=== PATIENT | male | born 1975 | race Hispanic/Latino ===

== ENCOUNTER 2021-06-26 15:00 | Inpatient (IN) | payer SELFPAY ==
[~2021-06-26] VITALS: Ht 165.1 cm; Wt 90.6 kg
[2021-06-26] VITALS (28 sets, daily range): BP systolic 124–154; BP diastolic 71–85
[2021-06-26] MEDS ORDERED: IOHEXOL-350 50ML VIAL IV ONE (15:11)
[2021-06-26] MEDS ORDERED: FENTANYL CITRATE PF 50 MCG/1 ML 2ML VIAL ONE (15:11)
[2021-06-26] MEDS ORDERED: IOHEXOL 350 MG/ML 100ML INFUS..BTL IV ONE (15:11)
[2021-06-26] MEDS ORDERED: MIDAZOLAM HCL 1 MG/ML 2ML VIAL ONE (15:11)
[2021-06-26] MEDS ORDERED: HEPARIN 10,000 UNIT/10ML (1,000 UNIT/ML) VIAL ONE (15:11)
[2021-06-26] MEDS ORDERED: LIDOCAINE HCL 400MG/20ML VIAL ONE (15:12)
[2021-06-26] MEDS ORDERED: NITROGLYCERIN 50MG VIAL ONE (15:18)
[2021-06-26] MEDS ORDERED: EPTIFIBATIDE 2 MG/ML 10 ML VIAL IVP ONE ×2 (15:58→17:53)
[2021-06-26] MEDS ORDERED: EPTIFIBATIDE 75MG/100ML BOTTLE 100 ML IV ONE (15:59)
[2021-06-26] MEDS ORDERED: CLOPIDOGREL 300MG TAB ONE (16:11)
[2021-06-26] MEDS ORDERED: EPTIFIBATIDE 75MG/100ML BOTTLE 100 ML IV SCH (17:00)
[2021-06-26] MEDS ORDERED: ONDANSETRON 4MG INJ IVP SCH (17:00)
[2021-06-26] MEDS ORDERED: ACETAMINOPHEN WITH CODEINE 1 TAB TAB PO PRN ×2 (17:00)
[2021-06-26] MEDS ORDERED: ONDANSETRON 4MG INJ IVP PRN (17:00)
[2021-06-26] MEDS ORDERED: HEPARIN 25,000 UNITS/250ML D5W 250 ML IV SCH (17:00)
[2021-06-26] MEDS ORDERED: MORPHINE 5 MG/ML VIAL (5MG OR GREATER DOSE) IVP SCH ×2 (17:00)
[2021-06-26] MEDS ORDERED: TEMAZEPAM 30 MG CAP PO PRN (17:00)
[2021-06-26] MEDS ORDERED: NITROGLYCERIN 50MG/D5W 250ML 1 BOT IV PRN (17:00)
[2021-06-26] MEDS: METOPROLOL TARTRATE 25 MG TAB PO SCH (20:58)
[2021-06-26] MEDS: ATORVASTATIN 40 MG TABLET PO SCH (20:58)
[2021-06-27] VITALS (46 sets, daily range): BP systolic 107–142; BP diastolic 51–83
[2021-06-27 07:05] LABS: BASOPHILS % (AUTO) 0.2 % (0.0-5.0); EOSINOPHILS % (AUTO) 0.7 % (0.0-8.0); LYMPHOCYTES % (AUTO) 22.6 % (21.0-51.0); MEAN CORPUSCULAR HEMOGLOBIN 31.6 pg (27.0-33.0); MEAN CORPUSCULAR HGB CONC 33.1 g/dL (32.0-36.0); MEAN CORPUSCULAR VOLUME 95.5 fL (79-99); MONOCYTES % (AUTO) 7.4 % (3.0-13.0); NEUTROPHILS % (AUTO) 68.3 % (40.0-77.0); PLATELET COUNT (AUTO) 159 K/uL (130-400); RED BLOOD CELL COUNT(AUTO) 4.71 MIL/uL (4.50-6.20); RED CELL DISTRIBUTION WIDTH 12.3 % (11.0-15.5); WHITE BLOOD COUNT (AUTO) 12.7 K/uL (4.8-10.8)
[2021-06-27 07:37] LABS: CREATININE 0.9 mg/dL (0.5-1.5); MAGNESIUM 2.1 mg/dL (1.80-2.40); POTASSIUM 3.9 mmol/L (3.5-5.1); THYROID STIMULATING HORMONE 1.54 uIU/mL (0.36-3.74)
[2021-06-27] MEDS: PANTOPRAZOLE 40 MG TAB DR PO SCH (08:12)
[2021-06-27] MEDS: METOPROLOL TARTRATE 25 MG TAB PO SCH ×2 (08:12→21:12)
[2021-06-27] MEDS: CLOPIDOGREL 75MG TAB PO SCH (11:23)
[2021-06-27] MEDS: ASPIRIN 81MG CHEW TAB PO SCH (11:23)
[2021-06-27] MEDS: THIAMINE HCL 100 MG TABLET PO SCH (11:25)
[2021-06-27] MEDS: FOLIC ACID 1 MG TABLET PO SCH (11:25)
[2021-06-27] MEDS: ATORVASTATIN 40 MG TABLET PO SCH (21:12)
[2021-06-28 03:28] LABS: HEMATOCRIT 47.3 % (42-54); MEAN CORPUSCULAR HEMOGLOBIN 31.8 pg (27.0-33.0); MEAN CORPUSCULAR VOLUME 96.3 fL (79-99); RED BLOOD CELL COUNT(AUTO) 4.91 MIL/uL (4.50-6.20); WHITE BLOOD COUNT (AUTO) 11.3 K/uL (4.8-10.8)
[2021-06-28 03:40] LABS: CREATININE 0.9 mg/dL (0.5-1.5); POTASSIUM 3.4 mmol/L (3.5-5.1)
[2021-06-28 03:43] VITALS: BP 121/70
[2021-06-28 07:33] VITALS: BP 116/79
[2021-06-28] MEDS ORDERED: POTASSIUM CHLORIDE 10% ELIXIR 20 MEQ/15 ML UDCUP PO PRN (08:00)
[2021-06-28] MEDS ORDERED: LIDOCAINE HCL-MPF 1% 2ML VIAL IV PRN (08:00)
[2021-06-28] MEDS ORDERED: KCL 20 MEQ ERTAB PO PRN (08:00)
[2021-06-28] MEDS ORDERED: POTASSIUM CHLORIDE 20MEQ/100ML 100 ML IV PRN (08:00)
[2021-06-28] MEDS: CLOPIDOGREL 75MG TAB PO SCH (08:46)
[2021-06-28] MEDS: METOPROLOL TARTRATE 25 MG TAB PO SCH (08:46)
[2021-06-28] MEDS: THIAMINE HCL 100 MG TABLET PO SCH (08:46)
[2021-06-28] MEDS: FOLIC ACID 1 MG TABLET PO SCH (08:46)
[2021-06-28] MEDS: PANTOPRAZOLE 40 MG TAB DR PO SCH (08:46)
[2021-06-28] MEDS: ASPIRIN 81MG CHEW TAB PO SCH (08:46)
[2021-06-28 11:30] VITALS: BP 122/65
== END 2021-06-28 12:30 | disposition home or self-care (01) | DRG 247 ==
LOC: 2CH 15:17 → 2DH 06-27 17:43
PROVIDERS: ADMIT Hospitalist; ATTEND Hospitalist
PROC: 4A023N7 Measurement of Cardiac Sampling and Pressure, Left Heart, Percutaneous Approach (ICD-10-PCS; principal; 2021-06-26)
PROC: 027034Z Dilation of Coronary Artery, One Artery with Drug-eluting Intraluminal Device, Percutaneous Approach (ICD-10-PCS; 2021-06-26)
PROC: B2111ZZ Fluoroscopy of Multiple Coronary Arteries using Low Osmolar Contrast (ICD-10-PCS; 2021-06-26)
PROC: 3E033PZ Introduction of Platelet Inhibitor into Peripheral Vein, Percutaneous Approach (ICD-10-PCS; 2021-06-26)
DX: I21.4 Non-ST elevation (NSTEMI) myocardial infarction (principal); I16.0 Hypertensive urgency; I10 Essential (primary) hypertension; E78.5 Hyperlipidemia, unspecified; F10.10 Alcohol abuse, uncomplicated; I25.10 Atherosclerotic heart disease of native coronary artery without angina pectoris; E66.9 Obesity, unspecified; Z68.33 Body mass index [BMI] 33.0-33.9, adult; F17.210 Nicotine dependence, cigarettes, uncomplicated
CPT/HCPCS: 36415; 80048; 80061; 82948; 83735; 84443; 84484; 85025; 85027; 85347; 85730; 93005; 93306; 93356; 93454; C1769; C1887; C1894; C9600; G0378; J1327; J1644; J2250; J3010; J3490; Q9967

== ENCOUNTER 2021-08-31 05:51 | Day surgery (SDC) | payer OTHER ==
[2021-08-26 12:46] LABS: BASOPHILS % (AUTO) 0.4 % (0.0-5.0); EOSINOPHILS % (AUTO) 0.9 % (0.0-8.0); HEMATOCRIT 44.9 % (42-54); LYMPHOCYTES % (AUTO) 21.9 % (21.0-51.0); MEAN CORPUSCULAR HGB CONC 33.2 g/dL (32.0-36.0); MEAN CORPUSCULAR VOLUME 93.3 fL (79-99); MONOCYTES % (AUTO) 6.1 % (3.0-13.0); NEUTROPHILS % (AUTO) 70.3 % (40.0-77.0); PLATELET COUNT (AUTO) 234 K/uL (130-400); RED BLOOD CELL COUNT(AUTO) 4.81 MIL/uL (4.50-6.20); RED CELL DISTRIBUTION WIDTH 11.9 % (11.0-15.5); WHITE BLOOD COUNT (AUTO) 11.3 K/uL (4.8-10.8)
[2021-08-26 12:50] LABS: APPEARANCE,URINE Clear (CLEAR); BILIRUBIN,URINE Negative (NEGATIVE); COLOR,URINE Yellow (YELLOW); GLUCOSE, URINE (UA) Negative (NEGATIVE); KETONES,URINE Negative (NEGATIVE); LEUKOCYTE ESTERASE ,URINE Negative (NEGATIVE); NITRATE,URINE Negative (NEGATIVE); OCCULT BLOOD,URINE Negative (NEGATIVE); PH,URINE 5.5 (5.0-8.0); PROTEIN,URINE Negative (NEGATIVE)
[2021-08-26 12:58] LABS: CREATININE 0.9 mg/dL (0.5-1.5); POTASSIUM 4.3 mmol/L (3.5-5.1)
[2021-08-26 13:01] LABS: INR 1.03 (0.85-1.15); PROTHROMBIN TIME 11.2 SEC (9.6-11.6)
[2021-08-26 13:02] LABS: PARTIAL THROMBOPLASTIN TIME 29.4 SEC (26.3-35.5)
[2021-08-26 13:16] LABS: B-TYPE NATRIURETIC PEPTIDE 51 pg/mL (0-100)
[2021-08-31] VITALS (11 sets, daily range): BP systolic 104–136; BP diastolic 61–84
[~2021-08-31] VITALS: Ht 172.7 cm; Wt 89.3 kg
[~2021-08-31 05:51] MED LIST: 0.9% NACL 500ML IV.SOLN 500 ML IV SCH; ASPI-1443 PO; ATOR40TA71 PO; CLOP75TA32 PO; METO25TA6 PO
[2021-08-31] MEDS ORDERED: 0.9%NACL 1000ML 1,000 ML IV ONE (06:20)
[2021-08-31] MEDS ORDERED: IOHEXOL-350 75 ML VIAL IV ONE ×2 (07:04→07:42)
[2021-08-31] MEDS ORDERED: NITROGLYCERIN 50MG VIAL ONE (07:04)
[2021-08-31] MEDS ORDERED: LIDOCAINE HCL 400MG/20ML VIAL ONE (07:05)
[2021-08-31] MEDS ORDERED: IOHEXOL-350 50ML VIAL IV ONE (07:05)
[2021-08-31] MEDS ORDERED: MIDAZOLAM HCL 1 MG/ML 2ML VIAL ONE (07:11)
[2021-08-31] MEDS ORDERED: FENTANYL CITRATE PF 50 MCG/1 ML 2ML VIAL ONE (07:12)
[2021-08-31] MEDS ORDERED: HEPARIN 10,000 UNIT/10ML (1,000 UNIT/ML) VIAL ONE (07:25)
[2021-08-31] MEDS ORDERED: NITROGLYCERIN 4.1 GM SPRAY TL ONE (07:48)
[2021-08-31] MEDS ORDERED: MORPHINE 2 MG SYG ONE (07:54)
[2021-08-31] MEDS ORDERED: DOPAMINE HCL 400 MG/D5%-WATER 250 ML IV ONE (07:57)
[2021-08-31] MEDS ORDERED: HEPARIN 1,000 UNIT VIAL ONE (08:00)
[2021-08-31] MEDS ORDERED: ATROPINE 1MG SYG IVP ONE (08:07)
[2021-08-31] MEDS ORDERED: ONDANSETRON 4MG INJ ONE (08:08)
[2021-08-31] MEDS ORDERED: PANTOPRAZOLE 40 MG TAB DR PO SCH (08:47)
[2021-08-31] MEDS ORDERED: CLOPIDOGREL 75MG TAB PO SCH (09:00)
[2021-08-31] MEDS ORDERED: ASPIRIN 81MG CHEW TAB PO SCH (09:00)
[2021-08-31] MEDS ORDERED: ONDANSETRON 4MG INJ IVP PRN (09:00)
[2021-08-31] MEDS ORDERED: TEMAZEPAM 30 MG CAP PO PRN (09:00)
[2021-08-31] MEDS ORDERED: NITROGLYCERIN 50MG/D5W 250ML 1 BOT IV PRN (09:00)
[2021-08-31] MEDS ORDERED: ACETAMINOPHEN WITH CODEINE 1 TAB TAB PO PRN ×2 (09:00)
== END 2021-08-31 14:10 | disposition home or self-care (01) ==
LOC: DAH 05:51
PROVIDERS: ATTEND Internal Medicine Cardiovascular Disease
DX: I25.119 Atherosclerotic heart disease of native coronary artery with unspecified angina pectoris (principal); I10 Essential (primary) hypertension; E78.5 Hyperlipidemia, unspecified; I25.2 Old myocardial infarction; F17.200 Nicotine dependence, unspecified, uncomplicated; Z79.899 Other long term (current) drug therapy; Z79.01 Long term (current) use of anticoagulants; Z95.5 Presence of coronary angioplasty implant and graft
CPT/HCPCS: 36415; 71045; 80048; 81003; 83880; 85025; 85610; 85730; 93005 ×2; 93458; A4215; A4216; A4221; A4222; A4223 ×3; A4606; A4663; C1725; C1760; C1769; C1874; C1887 ×2; C1894 ×2; C9600; J0461; J1265; J1644 ×3; J2250; J2405; J3490 ×2; J7030; Q9967 ×2; 99156; 99157; J3010

== ENCOUNTER 2022-06-11 05:51 | Observation (INO) | payer OTHER ==
[2022-06-09 10:57] VITALS: BP 115/68
[2022-06-09 10:57] LABS: BASOPHILS % (AUTO) 0.4 % (0.0-5.0); EOSINOPHILS % (AUTO) 1.4 % (0.0-8.0); HEMATOCRIT 44.4 % (42-54); LYMPHOCYTES % (AUTO) 29.1 % (21.0-51.0); MEAN CORPUSCULAR HEMOGLOBIN 30.4 pg (27.0-33.0); MEAN CORPUSCULAR HGB CONC 32.4 g/dL (32.0-36.0); MEAN CORPUSCULAR VOLUME 93.7 fL (79-99); NEUTROPHILS % (AUTO) 62.7 % (40.0-77.0); PLATELET COUNT (AUTO) 196 K/uL (130-400); RED BLOOD CELL COUNT(AUTO) 4.74 MIL/uL (4.50-6.20); RED CELL DISTRIBUTION WIDTH 12.4 % (11.0-15.5); WHITE BLOOD COUNT (AUTO) 9.9 K/uL (4.8-10.8)
[2022-06-09 11:12] LABS: CREATININE 0.9 mg/dL (0.5-1.5); POTASSIUM 4.6 mmol/L (3.5-5.1)
[2022-06-09 11:13] LABS: APPEARANCE,URINE CLEAR (CLEAR); BILIRUBIN,URINE NEGATIVE (NEGATIVE); COLOR,URINE LIGHT-YELLOW (YELLOW); GLUCOSE, URINE (UA) NEGATIVE (NEGATIVE); KETONES,URINE NEGATIVE (NEGATIVE); LEUKOCYTE ESTERASE ,URINE NEGATIVE Leu/uL (NEGATIVE); NITRATE,URINE NEGATIVE (NEGATIVE); OCCULT BLOOD,URINE NEGATIVE (NEGATIVE); PH,URINE 5.5 (5.0-8.0); PROTEIN,URINE NEGATIVE (NEGATIVE); UROBILINOGEN,URINE 0.2 mg/dL (0.2-1.0)
[2022-06-09 11:27] LABS: B-TYPE NATRIURETIC PEPTIDE 22 pg/mL (0-100)
[2022-06-09 12:14] LABS: PROTHROMBIN TIME 10.9 SEC (9.6-11.6)
[2022-06-11] VITALS (15 sets, daily range): BP systolic 99–137; BP diastolic 54–87
[~2022-06-11] VITALS: Ht 177.8 cm; Wt 94.3 kg
[~2022-06-11 05:51] MED LIST changes: -0.9% NACL 500ML IV.SOLN 500 ML IV SCH; +ISOS30TA92 PO; +NITR0.4T50 SL
[2022-06-11] MEDS ORDERED: 0.9%NACL 1000ML 1,000 ML IV ONE (06:23)
[2022-06-11] MEDS ORDERED: HEPARIN 10,000 UNIT/10ML (1,000 UNIT/ML) VIAL ONE (07:15)
[2022-06-11] MEDS ORDERED: LIDOCAINE HCL 400MG/20ML VIAL ONE ×2 (07:15→07:31)
[2022-06-11] MEDS ORDERED: IOHEXOL-350 75 ML VIAL IV ONE (07:15)
[2022-06-11] MEDS ORDERED: IOHEXOL-350 50ML VIAL IV ONE (07:26)
[2022-06-11] MEDS ORDERED: NITROGLYCERIN 4.1 GM SPRAY TL ONE (07:52)
[2022-06-11] MEDS ORDERED: MORPHINE 2 MG SYG ONE (07:56)
[2022-06-11] MEDS ORDERED: ATROPINE 1MG SYG IVP ONE (08:00)
[2022-06-11] MEDS ORDERED: ASPIRIN 325MG EC TAB PO ONE (08:14)
[2022-06-11] MEDS ORDERED: NITROGLYCERIN 50MG/D5W 250ML 1 BOT IV PRN (08:30)
[2022-06-11] MEDS ORDERED: ONDANSETRON 4MG INJ IVP SCH (08:30)
[2022-06-11] MEDS ORDERED: ONDANSETRON 4MG INJ IVP PRN (08:30)
[2022-06-11] MEDS ORDERED: TEMAZEPAM 30 MG CAP PO PRN (08:30)
[2022-06-11] MEDS ORDERED: CLOPIDOGREL 300MG TAB PO SCH (08:30)
[2022-06-11] MEDS ORDERED: ACETAMINOPHEN WITH CODEINE 1 TAB TAB PO PRN ×2 (08:30)
[2022-06-11] MEDS ORDERED: MORPHINE 5 MG/ML VIAL (5MG OR GREATER DOSE) IVP SCH (08:30)
[2022-06-11] MEDS: CLOPIDOGREL 75MG TAB PO SCH (09:00)
[2022-06-11] MEDS: ASPIRIN 81MG CHEW TAB PO SCH (09:00)
[2022-06-11] MEDS: PANTOPRAZOLE 40 MG TAB DR PO SCH (13:26)
[2022-06-12 00:06] VITALS: BP 130/78
[2022-06-12 03:39] LABS: HEMATOCRIT 42.3 % (42-54); MEAN CORPUSCULAR HEMOGLOBIN 30.5 pg (27.0-33.0); MEAN CORPUSCULAR HGB CONC 33.3 g/dL (32.0-36.0); MEAN CORPUSCULAR VOLUME 91.6 fL (79-99); RED BLOOD CELL COUNT(AUTO) 4.62 MIL/uL (4.50-6.20); RED CELL DISTRIBUTION WIDTH 12.4 % (11.0-15.5); WHITE BLOOD COUNT (AUTO) 10.9 K/uL (4.8-10.8)
[2022-06-12 03:50] LABS: POTASSIUM 3.5 mmol/L (3.5-5.1)
[2022-06-12 04:53] VITALS: BP 110/56
[2022-06-12 07:00] VITALS: BP 123/70
[2022-06-12] MEDS: PANTOPRAZOLE 40 MG TAB DR PO SCH (08:17)
[2022-06-12] MEDS: CLOPIDOGREL 75MG TAB PO SCH (08:17)
[2022-06-12] MEDS: ASPIRIN 81MG CHEW TAB PO SCH (08:17)
[2022-06-12 11:10] VITALS: BP 108/66
== END 2022-06-12 12:37 | disposition home or self-care (01) ==
LOC: DAH 05:51 → DAHIP 05:52 → 2DH 08:44
PROVIDERS: ADMIT Internal Medicine Cardiovascular Disease; ATTEND Internal Medicine Cardiovascular Disease
DX: I25.119 Atherosclerotic heart disease of native coronary artery with unspecified angina pectoris (principal); I10 Essential (primary) hypertension; I21.4 Non-ST elevation (NSTEMI) myocardial infarction; I25.2 Old myocardial infarction; E78.5 Hyperlipidemia, unspecified; F17.200 Nicotine dependence, unspecified, uncomplicated; Z95.5 Presence of coronary angioplasty implant and graft; Z79.82 Long term (current) use of aspirin; Z79.899 Other long term (current) drug therapy; Z98.890 Other specified postprocedural states
CPT/HCPCS: 80048 ×2; 83880; 85025; 85610; 85730 ×2; 81003; 36415 ×3; 71045; 93005 ×2; 93458; 96374; 85347; 82948; 80061; 85027; C1769; C1887; C1894; C1874 ×2; G0378 ×29; J3490 ×2; J7030; J0461; J1644 ×2; J2405; Q9967; A4215; A4223 ×3; A4222; A4221; A4663; A4216; A4606; C9600